=== PATIENT | male | born 1955 | race Caucasian/White ===

== ENCOUNTER → 2022-03-25 14:54 | Outpatient (CLI) | payer OTHER, SELFPAY ==
--- NOTE | ~2022-03-25 | XR_ITS ---
EXAM: XR hip LT min 2V DATE: 03/25/2022 15:20 HISTORY: M25.552 - Pain in left hip . COMPARISON: None available. FINDINGS: Normal mineralization. Mild superior left hip joint space narrowing. Scattered pelvic and hip enthesopathy. Vascular calcifications. Degenerative change in the lumbar spine and left SI joint. No fracture or dislocation. IMPRESSION: No acute osseous finding the left hip. Mild left hip osteoarthritis. Reviewed, dictated and finalized at location K. WORKER IMPRESSION: No acute osseous finding the left hip. Mild left hip osteoarthritis .
== END ==
PROVIDERS: PCP Family Medicine; Visit Provider Family Medicine
DX: M25.552 Pain in left hip (principal); M16.12 Unilateral primary osteoarthritis, left hip
CPT/HCPCS: 73502

== ENCOUNTER → 2022-10-28 13:58 | Outpatient (CLI) | payer MEDICARE, OTHER, SELFPAY ==
--- NOTE | ~2022-10-28 | XR_ITS ---
XR ankle RT 2V DATE: 10/28/2022 14:11 INDICATION: Right ankle and foot pain TECHNIQUE: AP and lateral views of right ankle COMPARISON: None FINDINGS: Prominent plantar and posterior calcaneal enthesopathy, without erosive change or periostit is. No fracture or dislocation of the ankle or disruption of the ankle mortise is detected. Some chronic accessory ossicle subjacent to the medial malleolus. IMPRESSION: Plantar and posterior calcaneal enthesopathy Reviewed, dictated and finalized at location B.
== END ==
PROVIDERS: PCP Family Medicine; Visit Provider Family Medicine
DX: M77.31 Calcaneal spur, right foot (principal); M25.571 Pain in right ankle and joints of right foot
CPT/HCPCS: 73600

== ENCOUNTER 2024-04-13 14:37 | Outpatient (CLI) | payer MEDICARE, OTHER, SELFPAY ==
--- NOTE | ~2024-04-13 | XR_ITS ---
HISTORY: M25.562 - Pain in left knee COMPARISON: None TECHNIQUE: 4 views of the left knee were performed FINDINGS: No acute or subacute fracture. Medial and lateral tibiofemoral joint space narrowing is identified. No suprapatellar joint effusion is identified. The infrapatellar joint space is clear. Ossification of the insertion of the quadriceps tendon is identified. Focal lucency with an irregular serpentine sclerotic border is identified, consistent with a bony inf arct within the proximal tibia and distal femur. IMPRESSION: Degenerative disease, without acute fracture. Reviewed, dictated and finalized at location A. NING MACHINE OPERATOR
--- NOTE | ~2024-04-13 | XR_ITS ---
HISTORY: M25.552 - Pain in left hip COMPARISON: 03/25/2022 TECHNIQUE: 2 views of the left hip along with an AP view of the pelvis FINDINGS: No acute fracture or dislocation is identified. Superior lateral sclerosis of the femoral acetabular joint space is present consistent with osteoarth ritis. Joint space narrowing detected within the left SI joint with sclerosis. Degenerative disease within the visualized portion of the lower lumbar spine. Fecal stasis within the rectum. Age-appropriate mineralization. IMPRESSION: Degenerative disease without acute fracture or dislocation Reviewed, dictated and finalized at location A. NA SUBSPECIALIST
== END 2024-04-13 14:38 | disposition home or self-care (01) ==
PROVIDERS: PCP Family Medicine; Visit Provider Physician Assistant
DX: M17.12 Unilateral primary osteoarthritis, left knee (principal); M16.12 Unilateral primary osteoarthritis, left hip; R10.32 Left lower quadrant pain; Z91.81 History of falling
CPT/HCPCS: 73502; 73564